=== PATIENT | male | born 1945 | race Caucasian/White ===

== ENCOUNTER 2022-10-26 05:21 | Emergency (ER) | payer MEDICARE ==
[2022-10-26] MEDS ORDERED: Ibuprofen 200 MG TAB ONE (06:12)
[2022-10-26] MEDS ORDERED: HYDROcodone/Acetaminophen 10/325 mg Tablet ONE (06:12)
[2022-10-26] MEDS ORDERED: Cyclobenzaprine 10 MG TAB ONE (07:04)
== END 2022-10-26 07:26 | disposition home or self-care (01) ==
LOC: BURERS 05:21
DX: S30.0XXA Contusion of lower back and pelvis, initial encounter (principal); S20.212A Contusion of left front wall of thorax, initial encounter; E11.9 Type 2 diabetes mellitus without complications; I10 Essential (primary) hypertension; E78.00 Pure hypercholesterolemia, unspecified; Z79.899 Other long term (current) drug therapy; Z79.82 Long term (current) use of aspirin; Z79.84 Long term (current) use of oral hypoglycemic drugs; W19.XXXA Unspecified fall, initial encounter
CPT/HCPCS: 72100